=== PATIENT | male | born 1945 | race Caucasian/White ===

== ENCOUNTER 2018-08-07 14:51 | Inpatient (IN) | payer MEDICARE, BC ==
[~2018-08-07 14:51] MED LIST: SEVOFLURANE 15 MIN
[2018-08-07 17:10] LABS: INR 1.56; PROTIME 18.8 Sec (11.9-14.9); PT RATIO 1.5
[2018-08-07 17:11] LABS: PARTIAL THROMBOPLASTIN TIME 31.2 Sec (23.0-35.0)
[2018-08-07] MEDS: SOD CHLORIDE 0.9% 1,000 ML IV (18:34)
[2018-08-07] MEDS: POLYMYXIN/BACITRACIN 1L IRRIG IRR (20:07)
[2018-08-07] MEDS: LIDOCAINE 1% (MPF) 30 ML INJ (20:07)
[2018-08-07] MEDS ORDERED: CEFAZOLIN 1 GM INJ (20:16)
[2018-08-07] MEDS ORDERED: PROPOFOL 20 ML (20:16)
[2018-08-07] MEDS ORDERED: EPHEDrine 25 MG/5 ML SYG (20:16)
[2018-08-07] MEDS ORDERED: LIDOCAINE 2% (SDV) 5 ML INJ (20:16)
[2018-08-07] MEDS ORDERED: METOCLOPRAMIDE 10 MG INJ IV (21:00)
[2018-08-07] MEDS ORDERED: MEPERIDINE 25 MG INJ IV (21:00)
[2018-08-07] MEDS ORDERED: OXYCODONE/ACETAMINOPHEN (5/325) TAB PO (21:00)
[2018-08-07] MEDS ORDERED: EPHEDrine 25 MG/5 ML SYG IV (21:00)
[2018-08-07] MEDS ORDERED: MIDAZOLAM 1 MG/ML 2 ML INJ IV (21:00)
[2018-08-07] MEDS ORDERED: hydrALAzine 20 MG INJ IV (21:00)
[2018-08-07] MEDS ORDERED: LABETALOL HCL 20MG INJ IV (21:00)
[2018-08-07] MEDS ORDERED: FENTAnyl 50 MCG/ML VIAL IV ×2 (21:00)
[2018-08-07] MEDS ORDERED: DIPHENHYDRAMINE 50 MG INJ IV (21:00)
[2018-08-07] MEDS: FENTAnyl 50 MCG/ML VIAL IV (22:09)
[2018-08-07] MEDS: ONDANSETRON 4 MG INJ IV (22:09)
[2018-08-07] MEDS: OXYCODONE/ACETAMINOPHEN (5/325) TAB PO (22:09)
[2018-08-08] MEDS: DORZOLAMIDE/TIMOLOL/PF 0.2 ML DROPERETTE BOTH EYES ×3 (01:00→21:48)
[2018-08-08] MEDS ORDERED: GLUCAGON 1 MG INJ IM (01:30)
[2018-08-08] MEDS ORDERED: DEXTROSE 50% 50 ML SYRINGE IV ×2 (01:30)
[2018-08-08] MEDS ORDERED: GLUCOSE GEL 15 GRAM TUBE BUCCAL (01:30)
[2018-08-08] MEDS ORDERED: GLUCOSE GEL 15 GRAM TUBE PO ×2 (01:30)
[2018-08-08] MEDS: traMADol 50 MG TAB PO (01:58)
[2018-08-08] MEDS: ACCU-CHEK XX (02:00)
[2018-08-08] MEDS: INSULIN ASPART [NOVOLOG] 3 ML PEN SC ×5 (08:20→21:58)
[2018-08-08] MEDS: FUROSEMIDE 40 MG TAB PO (09:05)
[2018-08-08] MEDS: DILTIAZEM (CD) 180 MG CAP PO (09:05)
[2018-08-08] MEDS: LISINOPRIL 20 MG TAB PO (09:06)
[2018-08-08] MEDS: HYDROCODONE/APAP (10/325) TAB PO (09:06)
[2018-08-08] MEDS: GABAPENTIN 300 MG CAP PO ×2 (09:06→21:49)
[2018-08-08] MEDS: POTASSIUM CHLORIDE (SR) 10 MEQ TAB PO (09:07)
[2018-08-08] MEDS ORDERED: LIDOCAINE 1% (MPF) 5 ML VIAL SC (11:30)
[2018-08-08 11:48] LABS: ADD MAN DIFF? NO
[2018-08-08 11:53] LABS: BASOPHILS % 0.3 % (0.0-2.0); EOSINOPHILS # 0.1 10^3/ul (0.0-0.5); EOSINOPHILS % 0.7 % (0.0-7.0); HEMOGLOBIN 11.7 g/dl (14.0-18.0); LYMPHOCYTES # 1.5 10^3/ul (0.8-2.9); LYMPHOCYTES % 16.6 % (15.0-51.0); MEAN CORPUSCULAR HEMOGLOBIN 29.8 pg (29.0-33.0); MEAN CORPUSCULAR HGB CONC 31.6 g/dl (32.0-37.0); MEAN CORPUSCULAR VOLUME 94.4 fl (82.0-101.0); MEAN PLATELET VOLUME 8.8 fl (7.4-10.4); MONOCYTE # 0.7 10^3/ul (0.3-0.9); MONOCYTES % 7.5 % (0.0-11.0); NEUTROPHIL # 6.9 10^3/ul (1.6-7.5); NEUTROPHILS % 74.7 % (39.0-77.0); PLATELET COUNT 276 10^3/UL (140-415); RED BLOOD COUNT 3.92 10^6/ul (4.70-6.10); RED CELL DISTRIBUTION WIDTH 14.3 % (11.5-14.5)
[2018-08-08 11:53] LABS: WHITE BLOOD COUNT 9.2 10^3/ul (4.8-10.8)
[2018-08-08 12:11] LABS: ALANINE AMINOTRANSFERASE 21 IU/L (13-69); ALBUMIN 2.9 g/dl (3.3-4.9); ALKALINE PHOSPHATASE 84 IU/L (42-121); ANION GAP 8 (5-13); ASPARTATE AMINO TRANSFERASE 12 IU/L (15-46); BILIRUBIN,INDIRECT 0.4 mg/dl (0-1.1); BILIRUBIN,TOTAL 0.4 mg/dl (0.2-1.3); BLOOD UREA NITROGEN 13 mg/dl (7-20); CARBON DIOXIDE 24 mmol/L (21-31); CHLORIDE 105 mmol/L (97-110); CHOL/HDL RATIO 3.2 RATIO; CHOLESTEROL 95 mg/dl (100-200); CREATININE 0.62 mg/dl (0.61-1.24); GLUCOSE 334 mg/dl (70-220); HDL CHOLESTEROL 29 mg/dl (31-75); LDL CHOLESTEROL,CALCULATED 47 mg/dl; POTASSIUM 4.5 mmol/L (3.5-5.1); SODIUM 137 mmol/L (135-144); TOTAL PROTEIN 6.5 g/dl (6.1-8.1); TRIGLYCERIDES 93 mg/dl (0-149)
[2018-08-08 12:35] LABS: HEMOGLOBIN A1C 7.7 % (0-5.9)
[2018-08-08] MEDS ORDERED: VANCOMYCIN IV PER PHARMACY XX (17:00)
[2018-08-08] MEDS ORDERED: INSULIN LISPRO 100 UNIT/ML VIAL SC (17:30)
[2018-08-08] MEDS: VANCOMYCIN HCL 1.25 GM in SOD CHLORIDE 0.9% 250 ML IVPB (18:48)
[2018-08-08] MEDS: VANCOMYCIN HCL 2 GM in SOD CHLORIDE 0.9% 500 ML IVPB (19:38)
[2018-08-08] MEDS: ATORVASTATIN 10 MG TAB PO (21:49)
[2018-08-08] MEDS: LACTOBACILLUS RHAMNOSUS CAP PO (21:49)
[2018-08-08] MEDS: INSULIN GLARGINE [LANTus] (100 UNITS/ML) SYG SC (21:58)
[2018-08-08] MEDS: ENOXAPARIN 40 MG/0.4 ML SYG SC (23:02)
[2018-08-09] MEDS: ACCU-CHEK XX (02:56)
[2018-08-09] MEDS: VANCOMYCIN HCL 1.25 GM in SOD CHLORIDE 0.9% 250 ML IVPB ×2 (05:44→17:18)
[2018-08-09] MEDS: INSULIN ASPART [NOVOLOG] 3 ML PEN SC ×7 (08:23→20:25)
[2018-08-09] MEDS: DORZOLAMIDE/TIMOLOL/PF 0.2 ML DROPERETTE BOTH EYES ×2 (09:19→20:29)
[2018-08-09] MEDS: GABAPENTIN 300 MG CAP PO ×2 (09:20→20:29)
[2018-08-09] MEDS: DILTIAZEM (CD) 180 MG CAP PO (09:20)
[2018-08-09] MEDS: LACTOBACILLUS RHAMNOSUS CAP PO ×2 (09:20→20:27)
[2018-08-09] MEDS: POTASSIUM CHLORIDE (SR) 10 MEQ TAB PO (09:21)
[2018-08-09] MEDS: FUROSEMIDE 40 MG TAB PO (09:21)
[2018-08-09] MEDS: LISINOPRIL 20 MG TAB PO (09:22)
[2018-08-09 11:22] LABS: ADD MAN DIFF? NO
[2018-08-09 11:25] LABS: BASOPHILS % 0.3 % (0.0-2.0); EOSINOPHILS # 0.1 10^3/ul (0.0-0.5); EOSINOPHILS % 0.9 % (0.0-7.0); HEMATOCRIT 38.5 % (42.0-52.0); HEMOGLOBIN 12.1 g/dl (14.0-18.0); LYMPHOCYTES # 1.7 10^3/ul (0.8-2.9); MEAN CORPUSCULAR HEMOGLOBIN 29.7 pg (29.0-33.0); MEAN CORPUSCULAR HGB CONC 31.4 g/dl (32.0-37.0); MEAN CORPUSCULAR VOLUME 94.4 fl (82.0-101.0); MEAN PLATELET VOLUME 8.9 fl (7.4-10.4); MONOCYTE # 0.6 10^3/ul (0.3-0.9); NEUTROPHIL # 5.5 10^3/ul (1.6-7.5); NEUTROPHILS % 69.4 % (39.0-77.0); PLATELET COUNT 251 10^3/UL (140-415); RED BLOOD COUNT 4.08 10^6/ul (4.70-6.10); RED CELL DISTRIBUTION WIDTH 14.2 % (11.5-14.5)
[2018-08-09 11:25] LABS: WHITE BLOOD COUNT 7.9 10^3/ul (4.8-10.8)
[2018-08-09 11:41] LABS: ALANINE AMINOTRANSFERASE 11 IU/L (13-69); ALBUMIN 3.3 g/dl (3.3-4.9); ALBUMIN/GLOBULIN RATIO 0.94; ALKALINE PHOSPHATASE 74 IU/L (42-121); ANION GAP 6 (5-13); ASPARTATE AMINO TRANSFERASE 14 IU/L (15-46); BILIRUBIN,INDIRECT 0.3 mg/dl (0-1.1); BILIRUBIN,TOTAL 0.3 mg/dl (0.2-1.3); BLOOD UREA NITROGEN 13 mg/dl (7-20); CALCIUM 8.3 mg/dl (8.4-10.2); CARBON DIOXIDE 25 mmol/L (21-31); CHLORIDE 105 mmol/L (97-110); CREATININE 0.69 mg/dl (0.61-1.24); GLUCOSE 254 mg/dl (70-220); POTASSIUM 4.4 mmol/L (3.5-5.1); SODIUM 136 mmol/L (135-144); TOTAL PROTEIN 6.8 g/dl (6.1-8.1)
[2018-08-09 11:42] LABS: MAGNESIUM 2.2 mg/dl (1.7-2.5)
[2018-08-09 12:10] LABS: THYROID STIMULATING HORMONE 0.656 MIU/L (0.465-4.680)
[2018-08-09] MEDS: ACETAMINOPHEN 325 MG TAB PO (13:35)
[2018-08-09] MEDS: INSULIN GLARGINE [LANTus] (100 UNITS/ML) SYG SC (20:24)
[2018-08-09] MEDS: ENOXAPARIN 40 MG/0.4 ML SYG SC (20:26)
[2018-08-09] MEDS: ATORVASTATIN 10 MG TAB PO (20:27)
[2018-08-10] MEDS: ACCU-CHEK XX (02:00)
[2018-08-10 05:51] LABS: VANCOMYCIN,TROUGH 13.6 ug/ml (10.0-20.0)
[2018-08-10] MEDS: VANCOMYCIN HCL 1.25 GM in SOD CHLORIDE 0.9% 250 ML IVPB (06:09)
[2018-08-10] MEDS: DORZOLAMIDE/TIMOLOL/PF 0.2 ML DROPERETTE BOTH EYES (08:06)
[2018-08-10] MEDS: DILTIAZEM (CD) 180 MG CAP PO (08:07)
[2018-08-10] MEDS: LACTOBACILLUS RHAMNOSUS CAP PO (08:10)
[2018-08-10] MEDS: LISINOPRIL 20 MG TAB PO (08:11)
[2018-08-10] MEDS: FUROSEMIDE 40 MG TAB PO (08:12)
[2018-08-10] MEDS: GABAPENTIN 300 MG CAP PO (08:12)
[2018-08-10] MEDS: POTASSIUM CHLORIDE (SR) 10 MEQ TAB PO (08:12)
[2018-08-10] MEDS: INSULIN ASPART [NOVOLOG] 3 ML PEN SC ×4 (08:14→13:35)
== END 2018-08-10 16:10 | disposition home health service (06) | DRG 629 ==
LOC: SDS 14:51 → 2NE 20:33
PROVIDERS: Podiatrist Foot & Ankle Surgery
PROC: 0QBR0ZZ Excision of Left Toe Phalanx, Open Approach (ICD-10-PCS; principal; 2018-08-07 17:43)
PROC: 02HV33Z Insertion of Infusion Device into Superior Vena Cava, Percutaneous Approach (ICD-10-PCS; 2018-08-07 17:43)
PROC: B54MZZA Ultrasonography of Right Upper Extremity Veins, Guidance (ICD-10-PCS; 2018-08-07 17:43)
DX: E11.621 Type 2 diabetes mellitus with foot ulcer (principal); I69.354 Hemiplegia and hemiparesis following cerebral infarction affecting left non-dominant side; L97.526 Non-pressure chronic ulcer of other part of left foot with bone involvement without evidence of necrosis; M86.172 Other acute osteomyelitis, left ankle and foot; E11.69 Type 2 diabetes mellitus with other specified complication; E78.5 Hyperlipidemia, unspecified; B95.2 Enterococcus as the cause of diseases classified elsewhere; I25.10 Atherosclerotic heart disease of native coronary artery without angina pectoris; E11.42 Type 2 diabetes mellitus with diabetic polyneuropathy; E11.51 Type 2 diabetes mellitus with diabetic peripheral angiopathy without gangrene; I48.91 Unspecified atrial fibrillation; I69.392 Facial weakness following cerebral infarction; I11.0 Hypertensive heart disease with heart failure; I50.9 Heart failure, unspecified; Z95.1 Presence of aortocoronary bypass graft; Z79.4 Long term (current) use of insulin
CPT/HCPCS: 36569; 71045; 73630-LT; 76937; 80053; 80061; 80202; 82962; 83036; 83735; 84443; 85025; 85610; 85651; 85730; 87070; 87075; 87102; 87116; 88304; 88311; 93005; 93922; 93926; 93971; 97161

== ENCOUNTER 2018-11-09 13:56 | Inpatient (IN) | payer MEDICARE, BC ==
[2018-11-09] MEDS: CEFEPIME 1GM/50 ML (PMX) 50 ML IVPB (00:50)
[2018-11-09 16:02] LABS: ADD MAN DIFF? NO
[2018-11-09 16:04] LABS: WHITE BLOOD COUNT 10.6 10^3/ul (4.8-10.8)
[2018-11-09 16:04] LABS: BASOPHILS % 0.4 % (0.0-2.0); EOSINOPHILS # 0.3 10^3/ul (0.0-0.5); EOSINOPHILS % 2.9 % (0.0-7.0); HEMOGLOBIN 10.6 g/dl (14.0-18.0); LYMPHOCYTES # 2.2 10^3/ul (0.8-2.9); LYMPHOCYTES % 20.4 % (15.0-51.0); MEAN CORPUSCULAR HEMOGLOBIN 30.7 pg (29.0-33.0); MEAN CORPUSCULAR HGB CONC 32.1 g/dl (32.0-37.0); MEAN CORPUSCULAR VOLUME 95.7 fl (82.0-101.0); MEAN PLATELET VOLUME 9.2 fl (7.4-10.4); MONOCYTE # 0.7 10^3/ul (0.3-0.9); MONOCYTES % 6.8 % (0.0-11.0); NEUTROPHIL # 7.3 10^3/ul (1.6-7.5); PLATELET COUNT 285 10^3/UL (140-415); RED BLOOD COUNT 3.45 10^6/ul (4.70-6.10); RED CELL DISTRIBUTION WIDTH 15.5 % (11.5-14.5)
[2018-11-09 16:21] LABS: ANION GAP 8 (5-13); BLOOD UREA NITROGEN 19 mg/dl (7-20); CALCIUM 8.5 mg/dl (8.4-10.2); CARBON DIOXIDE 24 mmol/L (21-31); CHLORIDE 105 mmol/L (97-110); GLUCOSE 204 mg/dl (70-220); POTASSIUM 4.4 mmol/L (3.5-5.1); SODIUM 137 mmol/L (135-144)
[2018-11-09 16:23] LABS: INR 1.86; PROTIME 21.5 Sec (11.9-14.9); PT RATIO 1.7
[2018-11-09 16:24] LABS: PARTIAL THROMBOPLASTIN TIME 36.1 Sec (23.0-35.0)
[2018-11-09] MEDS ORDERED: ACETAMINOPHEN 325 MG TAB PO ×2 (17:00)
[2018-11-09] MEDS ORDERED: morphine 2 MG INJ IV (17:00)
[2018-11-09] MEDS ORDERED: NACL 0.9% 3 ML SYG IV (17:00)
[2018-11-09] MEDS ORDERED: VANCOMYCIN IV PER PHARMACY XX (17:00)
[2018-11-09] MEDS ORDERED: HYDROCODONE/APAP (5/325) TAB PO (17:00)
[2018-11-09] MEDS ORDERED: ONDANSETRON 4 MG INJ IV (17:00)
[2018-11-09] MEDS ORDERED: GLUCAGON 1 MG INJ IM (18:00)
[2018-11-09] MEDS ORDERED: GLUCOSE GEL 15 GRAM TUBE BUCCAL (18:00)
[2018-11-09] MEDS ORDERED: GLUCOSE GEL 15 GRAM TUBE PO ×2 (18:00)
[2018-11-09] MEDS ORDERED: DEXTROSE 50% 50 ML SYRINGE IV ×2 (18:00)
[2018-11-09] MEDS: VANCOMYCIN HCL 2 GM in SOD CHLORIDE 0.9% 500 ML IVPB (18:54)
[2018-11-09] MEDS: INSULIN ASPART [NOVOLOG] 3 ML PEN SC ×3 (18:57→21:00)
[2018-11-09 20:57] LABS: PROCALCITONIN 0.07 ng/mL (0.00-0.10)
[2018-11-10] MEDS: CEFEPIME 1GM/50 ML (PMX) 50 ML IVPB ×2 (00:50→21:11)
[2018-11-10] MEDS: ATORVASTATIN 10 MG TAB PO ×2 (00:51→21:13)
[2018-11-10] MEDS: GABAPENTIN 300 MG CAP PO ×3 (00:52→21:11)
[2018-11-10] MEDS: FUROSEMIDE 40 MG INJ IV ×3 (00:55→21:14)
[2018-11-10] MEDS: DORZOLAMIDE/TIMOLOL/PF 0.2 ML DROPERETTE BOTH EYES ×3 (00:55→21:13)
[2018-11-10] MEDS: INSULIN GLARGINE [LANTus] (100 UNITS/ML) SYG SC ×2 (01:13→21:29)
[2018-11-10] MEDS: SPIRONOLACTONE 25 MG TAB PO ×2 (01:25→08:18)
[2018-11-10] MEDS: ACCU-CHEK XX (02:00)
[2018-11-10 07:13] LABS: ADD MAN DIFF? NO; BASOPHILS % 0.2 % (0.0-2.0); EOSINOPHILS # 0.2 10^3/ul (0.0-0.5); HEMATOCRIT 34.5 % (42.0-52.0); HEMOGLOBIN 10.9 g/dl (14.0-18.0); LYMPHOCYTES # 1.2 10^3/ul (0.8-2.9); LYMPHOCYTES % 12.5 % (15.0-51.0); MEAN CORPUSCULAR HEMOGLOBIN 30.4 pg (29.0-33.0); MEAN CORPUSCULAR HGB CONC 31.6 g/dl (32.0-37.0); MEAN CORPUSCULAR VOLUME 96.1 fl (82.0-101.0); MEAN PLATELET VOLUME 8.8 fl (7.4-10.4); MONOCYTE # 0.5 10^3/ul (0.3-0.9); MONOCYTES % 5.4 % (0.0-11.0); NEUTROPHIL # 7.3 10^3/ul (1.6-7.5); NEUTROPHILS % 79.5 % (39.0-77.0); PLATELET COUNT 291 10^3/UL (140-415); RED BLOOD COUNT 3.59 10^6/ul (4.70-6.10); RED CELL DISTRIBUTION WIDTH 15.3 % (11.5-14.5)
[2018-11-10 07:13] LABS: WHITE BLOOD COUNT 9.2 10^3/ul (4.8-10.8)
[2018-11-10 07:35] LABS: INR 1.81; PROTIME 21.1 Sec (11.9-14.9); PT RATIO 1.6
[2018-11-10 07:36] LABS: CREATINE KINASE 21 IU/L (23-200)
[2018-11-10 07:42] LABS: ALANINE AMINOTRANSFERASE 31 IU/L (13-69); ALBUMIN 3.2 g/dl (3.3-4.9); ALBUMIN/GLOBULIN RATIO 0.82; ALKALINE PHOSPHATASE 106 IU/L (42-121); ANION GAP 8 (5-13); ASPARTATE AMINO TRANSFERASE 18 IU/L (15-46); BILIRUBIN,INDIRECT 0.4 mg/dl (0-1.1); BILIRUBIN,TOTAL 0.4 mg/dl (0.2-1.3); BLOOD UREA NITROGEN 17 mg/dl (7-20); CALCIUM 8.5 mg/dl (8.4-10.2); CARBON DIOXIDE 27 mmol/L (21-31); CHLORIDE 103 mmol/L (97-110); CREATININE 0.86 mg/dl (0.61-1.24); GLUCOSE 260 mg/dl (70-220); POTASSIUM 4.1 mmol/L (3.5-5.1); SODIUM 138 mmol/L (135-144); TOTAL PROTEIN 7.1 g/dl (6.1-8.1)
[2018-11-10 07:43] LABS: CHOL/HDL RATIO 4.1 RATIO; HDL CHOLESTEROL 22 mg/dl (31-75); LDL CHOLESTEROL,CALCULATED 52 mg/dl; TRIGLYCERIDES 90 mg/dl (0-149)
[2018-11-10 07:43] LABS: CHOLESTEROL 92 mg/dl (100-200)
[2018-11-10 07:46] LABS: B-TYPE NATRIURETIC PEPTIDE 645 PG/ML (0-125)
[2018-11-10 07:48] LABS: CK INDEX 2.2; CK-MB 0.46 ng/ml (0.0-2.4); TROPONIN-I < 0.012 ng/ml (0.000-0.120)
[2018-11-10] MEDS: VANCOMYCIN 1.25 GM/NS 250 ML 250 ML IVPB ×2 (08:13→22:00)
[2018-11-10] MEDS: ASCORBIC ACID 500 MG TAB PO (08:13)
[2018-11-10] MEDS: TAMSULOSIN (SR) 0.4 MG CAP PO (08:14)
[2018-11-10] MEDS: LISINOPRIL 20 MG TAB PO (08:18)
[2018-11-10] MEDS: METOPROLOL (XL) 25 MG TAB PO ×2 (08:18→21:13)
[2018-11-10] MEDS: FUROSEMIDE 40 MG TAB PO (08:18)
[2018-11-10] MEDS: INSULIN ASPART [NOVOLOG] 3 ML PEN SC ×7 (08:34→21:30)
[2018-11-10] MEDS ORDERED: DILTIAZEM (CD) 180 MG CAP PO (09:00)
[2018-11-10 09:17] LABS: FREE T4 (FREE THYROXINE) 1.34 ng/dl (0.78-2.44)
[2018-11-11] MEDS: ACCU-CHEK XX (02:00)
[2018-11-11 07:05] LABS: ADD MAN DIFF? NO
[2018-11-11 07:09] LABS: BASOPHILS % 0.4 % (0.0-2.0); EOSINOPHILS # 0.2 10^3/ul (0.0-0.5); EOSINOPHILS % 3.5 % (0.0-7.0); HEMATOCRIT 34.3 % (42.0-52.0); HEMOGLOBIN 10.9 g/dl (14.0-18.0); LYMPHOCYTES % 14.7 % (15.0-51.0); MEAN CORPUSCULAR HEMOGLOBIN 30.2 pg (29.0-33.0); MEAN CORPUSCULAR HGB CONC 31.8 g/dl (32.0-37.0); MEAN PLATELET VOLUME 8.9 fl (7.4-10.4); MONOCYTE # 0.6 10^3/ul (0.3-0.9); PLATELET COUNT 263 10^3/UL (140-415); RED BLOOD COUNT 3.61 10^6/ul (4.70-6.10); RED CELL DISTRIBUTION WIDTH 15.3 % (11.5-14.5)
[2018-11-11 07:09] LABS: WHITE BLOOD COUNT 6.9 10^3/ul (4.8-10.8)
[2018-11-11 07:18] LABS: HEMOGLOBIN A1C 7.4 % (0-5.9)
[2018-11-11 07:26] LABS: ANION GAP 6 (5-13); BLOOD UREA NITROGEN 15 mg/dl (7-20); CALCIUM 8.3 mg/dl (8.4-10.2); CARBON DIOXIDE 28 mmol/L (21-31); CHLORIDE 102 mmol/L (97-110); CREATININE 0.89 mg/dl (0.61-1.24); GLUCOSE 178 mg/dl (70-220); MAGNESIUM 1.9 mg/dl (1.7-2.5); PHOSPHORUS 3.1 mg/dl (2.5-4.9); POTASSIUM 3.9 mmol/L (3.5-5.1); SODIUM 136 mmol/L (135-144)
[2018-11-11 07:34] LABS: B-TYPE NATRIURETIC PEPTIDE 680 PG/ML (0-125)
[2018-11-11 07:36] LABS: VANCOMYCIN,TROUGH 21.5 ug/ml (10.0-20.0)
[2018-11-11] MEDS: INSULIN ASPART [NOVOLOG] 3 ML PEN SC ×7 (08:48→21:00)
[2018-11-11] MEDS: FUROSEMIDE 40 MG INJ IV ×2 (08:52→20:56)
[2018-11-11] MEDS: TAMSULOSIN (SR) 0.4 MG CAP PO (08:54)
[2018-11-11] MEDS: GABAPENTIN 300 MG CAP PO ×2 (08:55→20:55)
[2018-11-11] MEDS: FUROSEMIDE 40 MG TAB PO (08:55)
[2018-11-11] MEDS: SPIRONOLACTONE 25 MG TAB PO (08:55)
[2018-11-11] MEDS: ASCORBIC ACID 500 MG TAB PO (08:55)
[2018-11-11] MEDS: LISINOPRIL 20 MG TAB PO (08:55)
[2018-11-11] MEDS: DORZOLAMIDE/TIMOLOL/PF 0.2 ML DROPERETTE BOTH EYES ×2 (08:55→20:55)
[2018-11-11] MEDS: METOPROLOL (XL) 25 MG TAB PO ×2 (08:56→20:55)
[2018-11-11] MEDS: SOD CHLORIDE 0.45% 1,000 ML IV (12:36)
[2018-11-11] MEDS ORDERED: PROPOFOL 20 ML (16:28)
[2018-11-11] MEDS ORDERED: MIDAZOLAM 1 MG/ML 2 ML INJ (16:29)
[2018-11-11] MEDS ORDERED: MEPERIDINE 100 MG INJ (16:29)
[2018-11-11] MEDS: BACITRACIN 50000 UNITS INJ (17:20)
[2018-11-11] MEDS: POLYMYXIN B 500000 UNIT INJ (17:20)
[2018-11-11] MEDS: LIDOCAINE 1% (MPF) 30 ML INJ (17:20)
[2018-11-11] MEDS ORDERED: LABETALOL HCL 20MG INJ IV (18:00)
[2018-11-11] MEDS ORDERED: hydrALAzine 20 MG INJ IV (18:00)
[2018-11-11] MEDS ORDERED: MEPERIDINE 25 MG INJ IV (18:00)
[2018-11-11] MEDS ORDERED: EPHEDrine 25 MG/5 ML SYG IV (18:00)
[2018-11-11] MEDS ORDERED: METOCLOPRAMIDE 10 MG INJ IV (18:00)
[2018-11-11] MEDS ORDERED: ONDANSETRON 4 MG INJ IV (18:00)
[2018-11-11] MEDS ORDERED: DIPHENHYDRAMINE 50 MG INJ IV (18:00)
[2018-11-11] MEDS ORDERED: FENTAnyl 50 MCG/ML VIAL IV ×3 (18:00)
[2018-11-11] MEDS ORDERED: MIDAZOLAM 1 MG/ML 2 ML INJ IV (18:00)
[2018-11-11] MEDS: VANCOMYCIN 1.25 GM/NS 250 ML 250 ML IVPB (19:06)
[2018-11-11] MEDS ORDERED: VANCOMYCIN HCL 1.75 GM in SOD CHLORIDE 0.9% 500 ML IVPB (20:00)
[2018-11-11] MEDS: INSULIN GLARGINE [LANTus] (100 UNITS/ML) SYG SC (20:30)
[2018-11-11] MEDS: ONDANSETRON 4 MG INJ IV (20:51)
[2018-11-11] MEDS: ATORVASTATIN 10 MG TAB PO (20:55)
[2018-11-11] MEDS: CEFEPIME 1GM/50 ML (PMX) 50 ML IVPB (21:16)
[2018-11-12] MEDS: ACCU-CHEK XX (02:00)
[2018-11-12] MEDS: INSULIN ASPART [NOVOLOG] 3 ML PEN SC ×8 (08:29→21:37)
[2018-11-12] MEDS: SPIRONOLACTONE 25 MG TAB PO (09:17)
[2018-11-12] MEDS: DORZOLAMIDE/TIMOLOL/PF 0.2 ML DROPERETTE BOTH EYES ×2 (09:17→21:01)
[2018-11-12] MEDS: GABAPENTIN 300 MG CAP PO ×2 (09:17→21:01)
[2018-11-12] MEDS: TAMSULOSIN (SR) 0.4 MG CAP PO (09:17)
[2018-11-12] MEDS: LISINOPRIL 20 MG TAB PO (09:17)
[2018-11-12] MEDS: ASCORBIC ACID 500 MG TAB PO (09:18)
[2018-11-12] MEDS: METOPROLOL (XL) 25 MG TAB PO ×2 (09:18→21:00)
[2018-11-12] MEDS: FUROSEMIDE 40 MG TAB PO ×2 (09:48→18:24)
[2018-11-12] MEDS: VANCOMYCIN 1.25 GM/NS 250 ML 250 ML IVPB (09:48)
[2018-11-12] MEDS: SOD CHLORIDE 0.45% 1,000 ML IV (12:00)
[2018-11-12] MEDS: LACTOBACILLUS RHAMNOSUS CAP PO (21:00)
[2018-11-12] MEDS: CEFEPIME 1GM/50 ML (PMX) 50 ML IVPB (21:01)
[2018-11-12] MEDS: ATORVASTATIN 10 MG TAB PO (21:01)
[2018-11-12] MEDS: INSULIN GLARGINE [LANTus] (100 UNITS/ML) SYG SC (21:23)
[2018-11-13] MEDS: ACCU-CHEK XX ×2 (00:34→02:00)
[2018-11-13] MEDS: VANCOMYCIN 1.25 GM/NS 250 ML 250 ML IVPB ×2 (04:00→23:16)
[2018-11-13] MEDS: FUROSEMIDE 40 MG TAB PO ×2 (05:45→18:17)
[2018-11-13] MEDS: LACTOBACILLUS RHAMNOSUS CAP PO ×2 (08:14→20:40)
[2018-11-13] MEDS: SPIRONOLACTONE 25 MG TAB PO (08:14)
[2018-11-13] MEDS: INSULIN ASPART [NOVOLOG] 3 ML PEN SC ×7 (08:14→20:42)
[2018-11-13] MEDS: METOPROLOL (XL) 25 MG TAB PO ×2 (08:16→20:41)
[2018-11-13] MEDS: LISINOPRIL 20 MG TAB PO (08:16)
[2018-11-13] MEDS: ASCORBIC ACID 500 MG TAB PO (08:20)
[2018-11-13] MEDS: TAMSULOSIN (SR) 0.4 MG CAP PO (08:20)
[2018-11-13] MEDS: GABAPENTIN 300 MG CAP PO ×2 (08:20→20:40)
[2018-11-13 10:53] LABS: ADD MAN DIFF? NO
[2018-11-13 11:00] LABS: WHITE BLOOD COUNT 8.8 10^3/ul (4.8-10.8)
[2018-11-13 11:00] LABS: BASOPHILS % 0.3 % (0.0-2.0); EOSINOPHILS # 0.2 10^3/ul (0.0-0.5); EOSINOPHILS % 2.6 % (0.0-7.0); HEMATOCRIT 35.2 % (42.0-52.0); HEMOGLOBIN 11.2 g/dl (14.0-18.0); LYMPHOCYTES # 1.5 10^3/ul (0.8-2.9); LYMPHOCYTES % 16.8 % (15.0-51.0); MEAN CORPUSCULAR HEMOGLOBIN 30.1 pg (29.0-33.0); MEAN CORPUSCULAR HGB CONC 31.8 g/dl (32.0-37.0); MEAN CORPUSCULAR VOLUME 94.6 fl (82.0-101.0); MEAN PLATELET VOLUME 8.7 fl (7.4-10.4); MONOCYTE # 0.7 10^3/ul (0.3-0.9); MONOCYTES % 8.2 % (0.0-11.0); NEUTROPHIL # 6.3 10^3/ul (1.6-7.5); NEUTROPHILS % 71.6 % (39.0-77.0); PLATELET COUNT 268 10^3/UL (140-415); RED BLOOD COUNT 3.72 10^6/ul (4.70-6.10)
[2018-11-13 11:15] LABS: INR 1.55; PROTIME 18.7 Sec (11.9-14.9); PT RATIO 1.5
[2018-11-13 11:17] LABS: ALANINE AMINOTRANSFERASE 20 IU/L (13-69); ALBUMIN 3.5 g/dl (3.3-4.9); ALBUMIN/GLOBULIN RATIO 0.89; ALKALINE PHOSPHATASE 85 IU/L (42-121); ANION GAP 8 (5-13); ASPARTATE AMINO TRANSFERASE 16 IU/L (15-46); BILIRUBIN,INDIRECT 0.3 mg/dl (0-1.1); BILIRUBIN,TOTAL 0.3 mg/dl (0.2-1.3); BLOOD UREA NITROGEN 16 mg/dl (7-20); CALCIUM 8.8 mg/dl (8.4-10.2); CARBON DIOXIDE 27 mmol/L (21-31); CHLORIDE 100 mmol/L (97-110); CREATININE 0.99 mg/dl (0.61-1.24); GLUCOSE 214 mg/dl (70-220); MAGNESIUM 1.9 mg/dl (1.7-2.5); SODIUM 135 mmol/L (135-144); TOTAL PROTEIN 7.4 g/dl (6.1-8.1)
[2018-11-13 11:23] LABS: B-TYPE NATRIURETIC PEPTIDE 663 PG/ML (0-125)
[2018-11-13] MEDS ORDERED: TIMOLOL MALEAT BOTH EYES (14:30)
[2018-11-13] MEDS ORDERED: DORZOLAMIDE HCL BOTH EYES (14:30)
[2018-11-13] MEDS: DORZOLAMIDE/TIMOLOL/PF 0.2 ML DROPERETTE BOTH EYES (18:17)
[2018-11-13] MEDS: ATORVASTATIN 10 MG TAB PO (20:40)
[2018-11-13] MEDS: CEFEPIME 1GM/50 ML (PMX) 50 ML IVPB (20:40)
[2018-11-13] MEDS: INSULIN GLARGINE [LANTus] (100 UNITS/ML) SYG SC (20:41)
[2018-11-14] MEDS: ACCU-CHEK XX (02:00)
[2018-11-14] MEDS: FUROSEMIDE 40 MG TAB PO ×2 (05:43→17:50)
[2018-11-14] MEDS: TAMSULOSIN (SR) 0.4 MG CAP PO (08:38)
[2018-11-14] MEDS: LACTOBACILLUS RHAMNOSUS CAP PO (08:38)
[2018-11-14] MEDS: DORZOLAMIDE/TIMOLOL/PF 0.2 ML DROPERETTE BOTH EYES (08:38)
[2018-11-14] MEDS: GABAPENTIN 300 MG CAP PO (08:38)
[2018-11-14] MEDS: SPIRONOLACTONE 25 MG TAB PO (08:38)
[2018-11-14] MEDS: ASCORBIC ACID 500 MG TAB PO (08:38)
[2018-11-14] MEDS: LISINOPRIL 20 MG TAB PO (08:39)
[2018-11-14] MEDS: ENOXAPARIN 30 MG/0.3 ML SYG SC (08:43)
[2018-11-14] MEDS: INSULIN ASPART [NOVOLOG] 3 ML PEN SC ×6 (08:44→17:52)
[2018-11-14] MEDS: METOPROLOL (XL) 25 MG TAB PO (08:54)
[2018-11-14] MEDS: CEFTRIAXONE 1 GM/50 ML (PMX) 50 ML IVPB (11:41)
[2018-11-14] MEDS ORDERED: POLYETHYLENE GLYCOL 17 GM PACKET PO (12:00)
[2018-11-14] MEDS: VANCOMYCIN 1.25 GM/NS 250 ML 250 ML IVPB (12:45)
[2018-11-14] MEDS: POLYETHYLENE GLYCOL 17 GM PACKET PO (12:45)
== END 2018-11-14 19:45 | disposition home health service (06) | DRG 629 ==
LOC: PP2 11-13 01:38 → E/R 13:56 → 2NE 11-13 13:26 → TEL 16:31
PROC: 0QBR0ZZ Excision of Left Toe Phalanx, Open Approach (ICD-10-PCS; principal; 2018-11-11 16:00)
PROC: 0QU Lower Bones, Supplement (ICD-10-PCS; 2018-11-11 16:00)
DX: E11.621 Type 2 diabetes mellitus with foot ulcer (principal); M86.9 Osteomyelitis, unspecified; E11.42 Type 2 diabetes mellitus with diabetic polyneuropathy; I11.0 Hypertensive heart disease with heart failure; I50.9 Heart failure, unspecified; Z79.4 Long term (current) use of insulin; I25.10 Atherosclerotic heart disease of native coronary artery without angina pectoris
CPT/HCPCS: 36415; 71045; 73630-LT; 73718; 80048; 80053; 80061; 80202; 82550; 82553; 82962; 83036; 83735; 83880; 84100; 84145; 84439; 84443; 84484; 85025; 85610; 85730; 87070; 87081; 93005; 93306; 97162; 99285-25